=== PATIENT | female | born 1965 | race Caucasian/White ===

== ENCOUNTER 2022-05-14 15:46 | Emergency (ER) | payer SELFPAY ==
[~2022-05-14] VITALS: Ht 157.5 cm; Wt 60.0 kg
[2022-05-14] MEDS ORDERED: MORPHINE SULFATE 4 MG/ML CPJ (NOT FOR IM USE) IV STA (17:13)
[2022-05-14] MEDS ORDERED: KETOROLAC 30MG/ML VIAL IV STA (17:13)
[2022-05-14 17:46] LABS: BASOPHILS % 0.3 % (0.0-2.0); EOSINOPHILS % 3.8 % (0.0-5.0); HEMOGLOBIN. 12.5 g/dL (12.0-16.0); LYMPHOCYTES % 30.8 % (20.0-50.0); MEAN CORPUSCULAR HEMOGLOBIN 29.7 pg (28.0-32.0); MEAN CORPUSCULAR VOLUME 87.9 fL (81.0-99.0); MEAN PLATELET VOLUME 7.2 fl (7.4-10.4); MONOCYTES % 9.1 % (2.0-8.0); PLATELET 291 x1000/uL (130-400); RED CELL DISTRIBUTION WIDTH 13.2 % (11.6-14.6)
[2022-05-14 17:55] LABS: CHLORIDE 105 mEq/L (98-107)
[2022-05-14 17:56] LABS: PROTHROMBIN TIME 10.6 sec (9.6-11.0)
[2022-05-14 19:00] VITALS: BP 114/56
== END 2022-05-14 19:30 | disposition home or self-care (01) ==
LOC: ER 15:46
DX: N81.4 Uterovaginal prolapse, unspecified (principal)
CPT/HCPCS: 36415; 80053; 85025; 85610; 86850; 86900; 86901; 96374; 96375; 99284; J1885; J2270; Z7610

== ENCOUNTER 2022-12-09 13:24 | Emergency (ER) | payer MEDICAID ==
[~2022-12-09] VITALS: Ht 162.6 cm; Wt 62.0 kg
[2022-12-09 13:43] VITALS: TEMP 98; O2SAT 100
[2022-12-09 14:45] VITALS: BP 117/66; PULSE 73; RESP 16
[2022-12-09] MEDS ORDERED: IBUPROFEN 600MG TABLET PO ONE (14:45)
[2022-12-09] MEDS ORDERED: IBUP-2029 MT (15:51)
[2022-12-09] MEDS ORDERED: LIDO700A15 TP (15:51)
== END 2022-12-09 16:21 | disposition home or self-care (01) ==
LOC: ER 13:24
DX: R07.81 Pleurodynia (principal); Z98.890 Other specified postprocedural states
CPT/HCPCS: 71101; 99283